=== PATIENT | male | born 1965 | race Caucasian/White ===

== ENCOUNTER 2022-12-08 18:39 | Emergency (ER) | payer SELFPAY ==
[~2022-12-08] VITALS: Ht 175.2 cm; Wt 80.7 kg
== END 2022-12-08 20:28 | disposition home or self-care (01) ==
LOC: ED 18:39
DX: R56.9 Unspecified convulsions (principal); E11.9 Type 2 diabetes mellitus without complications; Z88.2 Allergy status to sulfonamides; Z88.8 Allergy status to other drugs, medicaments and biological substances